=== PATIENT | male | born 1990 ===

== ENCOUNTER 2017-03-11 02:15 | Emergency (ER) | payer MEDICAID, OTHER ==
[2017-03-11 02:15] VITALS: BMI 18.6
[2017-03-11 02:37] VITALS: BP 123/79; PULSE 89; RESP 18; TEMP 99.2; O2SAT 100
[2017-03-11] MEDS ORDERED: Sodium Chloride 0.9% 1,000 ML IV STA (02:58)
--- NOTE | 2017-03-11 03:04 | ED PDOC ---
HPI: General Adult Time Seen by Provider: 03/11/17 02:25 Chief Complaint (Nursing): GI Problem Chief Complaint (Provider): GI Problem History Per: Patient History/Exam Limitations: no limitations Onset/Duration Of Symptoms: Days (x3) Additional Complaint(s): Antonio Agosto is a 26 year old male with a history of Hodgkin's lymphoma that presents to the ED with a chief complaint of two episodes of bright red rectal bleeding, the last of which occurred three days ago. Patient denies any associated rectal pain, constipation, or abdominal pain, but states that he has been anxious about it since his last episode and was unable to sleep tonight, prompting his visit. Past Medical History Reviewed: Historical Data, Nursing Documentation, Vital Signs Vital Signs: Last Vital Signs Temp 99.2 F 03/11/17 02:34 Pulse 89 03/11/17 02:34 Resp 18 03/11/17 02:34 BP 123/79 03/11/17 02:34 Pulse Ox 100 03/11/17 03:07 - Medical History PMH: Asthma Denies: Chronic Kidney Disease Other PMH: Hodgkin's lymphoma - Surgical History Surgical History: Appendectomy - Family History Family History: States: No Known Family Hx - Immunization History Hx Tetanus Toxoid Vaccination: No Hx Influenza Vaccination: No Hx Pneumococcal Vaccination: No - Home Medications Home Medications: Ambulatory Orders Medication Instructions Recorded Albuterol 2 puff IH DAILY PRN 08/18/14 - Allergies Allergies/Adverse Reactions: Allergies Allergy/AdvReac Type Severity Reaction Status Date / Time shellfish derived Allergy RASH Verified 03/11/17 02:34 shrimp Allergy RASH Verified 03/11/17 02:34 Review of Systems Gastrointestinal: Positive for: Other (two episodes of bright red rectal bleeding). Negative for: Abdominal Pain, Constipation, Rectal Pain Physical Exam - Reviewed Nursing Documentation Reviewed: Yes Vital Signs Reviewed: Yes - Physical Exam Appears: Positive for: Non-toxic, No Acute Distress Head Exam: Positive for: ATRAUMATIC, NORMOCEPHALIC Skin: Positive for: Normal Color, Warm Cardiovascular/Chest: Positive for: Regular Rate, Rhythm. Negative for: Murmur Respiratory: Positive for: Normal Breath Sounds. Negative for: Wheezing Gastrointestinal/Abdominal: Positive for: Normal Exam, Soft. Negative for: Tenderness Rectal: Positive for: Deferred Neurologic/Psych: Positive for: Alert, Oriented. Negative for: Motor/Sensory Deficits - Laboratory Results Result Diagrams: 03/11/17 03:06 03/11/17 03:06 - ECG O2 Sat by Pulse Oximetry: 100 (RA) Pulse Ox Interpretation: Normal Medical Decision Making Medical Decision Making: Impression: Rectal Bleeding Plan: * CMP * CBC * Amylase * Lipase * Occult Blood, Stool * Urinalysis * Sodium Chloride 1000 mL at 125 mLs/hr * Reevaluation Patient deferred from rectal exam All results discussed with Pt who demonstrated full understanding No complaint sof pain on re-eval. Stool sample unable to be provided. Abdomen remains soft non tender and non distended. Given GI referral and importance of follow up was stressed Scribe Attestation: Documented by Carly Jarrett, acting as a scribe for Shruthi Shell PA-C. Provider Scribe Attestation: All medical record entries made by the Scribe were at my direction and personally dictated by me. I have reviewed the chart and agree that the record accurately reflects my personal performance of the history, physical exam, medical decision making, and the department course for this patient. I have also personally directed, reviewed, and agree with the discharge instructions and disposition. Disposition - Clinical Impression Clinical Impression: Rectal bleeding - Patient ED Disposition Is Patient to be Admitted: No - Disposition Referrals: Ji Morris MD [Primary Care Provider] - Mickie MURO,MD Eri [Medical Doctor] - Disposition: Routine/Home Disposition Time: 05:18 Condition: STABLE Instructions: Rectal Bleeding (ED) Forms: [employer] ([place])
[2017-03-11 03:19] LABS: BASO % 0.5 % (0.0-2.0); EOS # 0.2 K/uL (0.0-0.7); EOS % 2.8 % (0.0-4.0); HEMOGLOBIN 15.5 g/dL (12.0-18.0); LYMPH % 27.1 % (20.0-40.0); MEAN CELL VOLUME 85.6 fl (80.0-94.0); MEAN CORPUSCULAR HEMOGLOBIN 30.5 pg (27.0-31.0); MEAN CORPUSCULAR HGB CONC 35.7 g/dL (33.0-37.0); MEAN PLATELET VOLUME 8.1 fl (7.2-11.7); MONO # 0.7 K/uL (0.0-0.8); MONO % 9.5 % (0.0-10.0); NEUT # 4.4 K/uL (1.8-7.0); NEUT % 60.1 % (50.0-75.0); NRBC % 0.1 % (0.0-0.0); RBC 5.08 Mil/uL (4.40-5.90); RED CELL DISTRIBUTION WIDTH 12.3 % (11.5-14.5); WHITE BLOOD COUNT 7.4 K/uL (4.8-10.8)
[2017-03-11 03:37] LABS: URINE BILIRUBIN NEGATIVE (NEGATIVE); URINE BLOOD NEGATIVE (NEGATIVE); URINE CLARITY SLIGHTY-CLOUDY (Clear); URINE COLOR YELLOW (YELLOW); URINE GLUCOSE (UA) NEG (Normal); URINE LEUKOCYTE ESTERASE NEG Leu/uL (Negative); URINE NITRATE NEGATIVE (NEGATIVE); URINE PROTEIN 30 mg/dL (NEGATIVE); URINE UROBILINOGEN 0.2-1.0 mg/dL (0.2-1.0)
[2017-03-11 03:42] LABS: ALBUMIN 4.3 g/dL (3.5-5.0); BLOOD UREA NITROGEN 16 mg/dl (9-20); CALCIUM 9.1 mg/dL (8.4-10.2); GFR AFRICAN-AMERICAN > 60; GFR NON-AFRICAN AMERICAN > 60
[2017-03-11 03:43] LABS: ALB/GLOB RATIO 1.3 (1.0-2.1); ALT/SGPT 43 U/L (21-72); AMYLASE 54 U/L (30-110); AST/SGOT 22 U/L (17-59); LIPASE 83 U/L (23-300)
== END 2017-03-11 05:18 | disposition home or self-care (01) ==
LOC: H.ER 02:15
DX: K62.5 Hemorrhage of anus and rectum (principal); Z85.71 Personal history of Hodgkin lymphoma

== ENCOUNTER 2017-09-16 21:18 | Emergency (ER) | payer MEDICAID, OTHER ==
[2017-09-16 21:18] VITALS: BMI 25.0
[2017-09-17 01:09] VITALS: O2SAT 100
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
[2017-09-17 04:05] VITALS: BP 115/57; PULSE 88; RESP 12; TEMP 98.8
--- NOTE | 2017-09-17 10:01 | CARD ---
APPROVED REPORT EKG Measurement Heart [id number] <Conclusion> Sinus tachycardia Left anterior fascicular block Artefact present
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
== END 2017-09-17 04:05 | disposition home or self-care (01) ==
LOC: H.ER 21:18
DX: R07.89 Other chest pain (principal)